=== PATIENT | male | born 1980 | race Two or more races ===

== ENCOUNTER 2018-08-03 01:23 | Emergency (ER) | payer MEDICAID, OTHER ==
[~2018-08-03] VITALS: Ht 170.2 cm; Wt 77.1 kg
[2018-08-03] MEDS ORDERED: IBUPROFEN 400 MG TABLET ONE (01:49)
--- NOTE | 2018-08-03 01:55 | NUR ---
MEDICATION ADMINISTERED. TOLERATED WELL. Patient discharged to home in stable condition. Written and verbal after care instructions given. Patient verbalizes understanding of instruction.
[2018-08-03 01:56] VITALS: BP 112/70
[2018-08-03] MEDS ORDERED: IBUPROFEN 400 MG TABLET PO ONE (02:00)
== END 2018-08-03 01:57 | disposition home or self-care (01) ==
LOC: ER 01:24
DX: G89.29 Other chronic pain (principal); M54.5 Low back pain
CPT/HCPCS: 99282; A4606; Z7610

== ENCOUNTER 2025-04-19 14:11 | Emergency (ER) | payer SELFPAY ==
[~2025-04-19] VITALS: Ht 172.7 cm; Wt 81.6 kg
[2025-04-19 14:30] VITALS: TEMP 98.1
[2025-04-19] MEDS: LORAZEPAM INJ 2 MG/ML VIAL IM ONE (14:56)
[2025-04-19] MEDS: OLANZAPINE 10 MG VIAL IM ONE (14:56)
[2025-04-19] MEDS ORDERED: ACETAMINOPHEN ES 500 MG TABLET ONE (14:57)
[2025-04-19] MEDS ORDERED: LORAZEPAM 1 MG TABLET ONE (15:03)
[2025-04-19] MEDS ORDERED: OLANZAPINE 5 MG TABLET ONE (15:04)
[2025-04-19] MEDS: ACETAMINOPHEN ES 500 MG TABLET PO ONE (15:07)
[2025-04-19] MEDS: LORAZEPAM 1 MG TABLET PO ONE (15:07)
[2025-04-19] MEDS: OLANZAPINE 5 MG TABLET PO ONE (15:07)
[2025-04-19 15:48] VITALS: BP 130/87; O2SAT 99
== END 2025-04-19 15:35 | disposition home or self-care (01) ==
LOC: ER 14:16
DX: F29 Unspecified psychosis not due to a substance or known physiological condition (principal); F17.200 Nicotine dependence, unspecified, uncomplicated